=== PATIENT | male | born 1950 | race Caucasian/White ===

== ENCOUNTER 2017-05-27 13:13 | Emergency (ER) | payer MEDICARE ==
[~2017-05-27] VITALS: Ht 170.2 cm; Wt 80.0 kg
[~2017-05-27 13:13] MED LIST: AMOXICILLIN/CL875 MG PO; ASPIRIN LOW DOS81 M1 PO; FLUARIX QUADRIV1 IN1 IM; PREDNISONE10 MG PO; TYLOX; ZITHROMAX250 MG PO; ZOCOR10 MG PO; ZOCOR20 M1 PO
[2017-05-27] MEDS ORDERED: MEDDOSEPAK PO (16:09)
[2017-05-27 16:12] VITALS: BP 126/70
== END 2017-05-27 16:18 | disposition home or self-care (01) ==
LOC: ED 13:13
DX: L50.0 Allergic urticaria (principal)

== ENCOUNTER 2018-08-20 14:02 | Emergency (ER) | payer OTHER, MEDICARE ==
[~2018-08-20] VITALS: Ht 170.2 cm; Wt 81.8 kg
[~2018-08-20 14:02] MED LIST changes: +MEDDOSEPAK PO
[2018-08-20] MEDS ORDERED: FLEXERIL5 MG PO (17:40)
[2018-08-20 17:47] VITALS: BP 137/80
== END 2018-08-20 17:47 | disposition home or self-care (01) | DRG 605 ==
LOC: ED 14:02
DX: S40.021A Contusion of right upper arm, initial encounter (principal); S70.01XA Contusion of right hip, initial encounter; V44.5XXA Car driver injured in collision with heavy transport vehicle or bus in traffic accident, initial encounter

== ENCOUNTER 2021-04-02 14:08 | Emergency (ER) | payer OTHER, MEDICARE ==
[~2021-04-02] VITALS: Ht 170.2 cm; Wt 95.0 kg
[~2021-04-02 14:08] MED LIST changes: +FLEXERIL5 MG PO
[2021-04-02 15:00] LABS: HEMATOCRIT 41.8 % (39.0-50.0); IMMATURE GRANULOCYTES 0.1 % (0.0-5.0); MEAN CELL VOLUME 87.6 fL CALC (80.0-100.0); MEAN CORPUSCULAR HGB 29.4 pG CALC (26.0-32.0); MEAN CORPUSCULAR HGB CONC 33.5 g/dL CAL (32.0-36.0); NEUT# 8.25 thou/uL (1.82-7.42); RED BLOOD COUNT 4.77 mill/uL (4.70-6.10); RED CELL DISTRI WIDTH 12.7 % (11.5-15.5)
[2021-04-02 15:21] LABS: ALKALINE PHOSPHATASE 64 u/l (38-126); AMYLASE 56 u/l (30-110); ANION GAP 10 (6-22 (CALC)); BUN 15 mg/dL (8-23); BUN/CREATININE RATIO 13 (12-20 (CALC)); CARBON DIOXIDE 26 mmol/l (22-30); CHLORIDE 105 mmol/l (95-108); CREATININE 1.1 mg/dL (0.7-1.3); GFR > 60 ML/MIN (>=60 (CALC)); GFR FOR AFR.AMER. > 60 ML/MIN (>=60 (CALC)); LIPASE 59 u/l (23-300); POTASSIUM 4.4 mmol/l (3.5-5.1); SGOT/AST 36 u/l (19-48); SODIUM 137 mmol/l (137-146); TOTAL PROTEIN 7.4 g/dL (6.3-8.2)
[2021-04-02 15:22] LABS: ACT PARTIAL THROMBO TIME 22.9 SECONDS (20.0-32.5)
[2021-04-02 15:25] LABS: ALBUMIN 4.5 g/dL (3.2-5.0); BILIRUBIN, TOTAL 0.8 mg/dL (0.0-1.4)
[2021-04-02] MEDS ORDERED: HYDROCO/APAP1 TA9 PO (16:22)
[2021-04-02 16:53] VITALS: BP 141/67
== END 2021-04-02 17:07 | disposition home or self-care (01) | DRG 552 ==
LOC: ED 14:08
DX: S16.1XXA Strain of muscle, fascia and tendon at neck level, initial encounter (principal); S63.601A Unspecified sprain of right thumb, initial encounter; S63.602A Unspecified sprain of left thumb, initial encounter; T24.101A Burn of first degree of unspecified site of right lower limb, except ankle and foot, initial encounter; V29.40XA Motorcycle driver injured in collision with unspecified motor vehicles in traffic accident, initial encounter